=== PATIENT | male | born 1940 | race Caucasian/White ===

== ENCOUNTER → 2017-11-12 12:51 | Outpatient (CLI) | payer MEDICARE, BC, SELFPAY ==
[2017-11-12 14:17] LABS: Absolute Neutrophil Count 3.4 X10^3/uL (2.0-7.7); Basophil# 0.05 X10^3/uL; Eosinophil# 0.15 X10^3/uL; Eosinophils% 2.9 % (0-5); Hematocrit 46.3 % (40-54); Hemoglobin 15.4 g/dl (13.0-16.5); Lymphocyte % 19.3 % (19-41); Mean Corp Hgb Conc 33.3 g/gl (32-36); Mean Corpuscular Hgb 31.8 pg (27.0-32.0); Mean Corpuscular Volume 95.7 fL (80-94); Mean Platelet Vol. 10.4 fl (6.2-12.0); Monocyte# 0.62 X10^3/uL; Monocyte% 11.9 % (0-10); Neutrophil # 3.35 X10^3/uL (2.7-7.7); Neutrophil % 64.5 % (47-70); Platelet Count 226 K/mm3 (150-450); RBC Distribution Width SD 44.5 fl (35.1-43.9); Red Blood Count 4.84 M/mm3 (4.6-6.2); White Blood Count 5.2 K/mm3 (4.4-11.0)
[2017-11-12 14:18] LABS: POSITIVE COUNT NO; POSITIVE DIFFERENTIAL NO; POSITIVE MORPHOLOGY NO
[2017-11-12 14:27] LABS: AST(SGOT) 17 U/L (15-37); Alanine Aminotransfer ALT/SGPT 27 U/L (16-61); Albumin, Serum 3.9 g/dL (3.2-5.0); Alkaline Phosphatase 80 U/L (45-117); Anion Gap 7 (5-15); BUN 12 mg/dL (7-18); Chloride 105 mmol/L (98-107); Creatinine, Serum 1.09 mg/dL (0.70-1.30); EST Glomerular Filtration Rate 70 mL/min (>60); Est Glom Filt Rate - Afr Amer 85 mL/min (>60); Glucose 101 mg/dL (74-106); Potassium 4.6 mmol/L (3.5-5.1); Protein, Total 7.9 g/dL (6.4-8.2); Sodium Level 141 mmol/L (136-145)
== END ==
PROVIDERS: Family Provider Family Medicine; PCP Family Medicine; Visit Provider Family Medicine
DX: K57.92 Diverticulitis of intestine, part unspecified, without perforation or abscess without bleeding (principal)
CPT/HCPCS: 36415; 80053; 85025

== ENCOUNTER 2017-12-31 06:04 | Day surgery (SDC) | payer MEDICARE, BC, SELFPAY ==
[2017-12-31] VITALS (7 sets, daily range): BP systolic 119–142; BP diastolic 78–93; PULSE 70–95; RESP 16–18; TEMP 36.2–36.3; O2SAT 94–97; BMI 30.9
--- NOTE | 2017-12-31 07:05 | PCM.OPRPT ---
Problem List (1) Bleeding per rectum Status: Acute (2) Family history of colon cancer in father Status: Acute (3) External hemorrhoid Status: Acute Report of Operation Date of Procedure: 12/31/17 Pre-Operative Diagnosis: k62.5 rectal bleeding. z80.0 family history of colon cancer in father. k64.4 external hemorrhoid Post-Operative Diagnosis: Same Surgery/Procedure Performed:: Colonoscopy Type of Anesthesia:: MAC Anesthesiologist: Jm Bradford Description of Procedure: Patient was brought into the endoscopy suite. Placed in the left lateral decubitus position. Was given graded anesthesia. Colonoscope was inserted into the rectum. It was directed through the sigmoid colon, descending colon, transverse colon, ascending colon, to the cecum without difficulty. Operative findings: 1. Cecum: Normal appearance no mass lesions normal ileocecal valve. 2. Ascending colon: Normal appearance no mass lesions. 3. Transverse colon: Normal appearance no mass lesions. 4. Descending colon: Normal appearance no mass lesions. 5. Sigmoid colon: Normal appearance moderate amount of diverticular disease was identified no mass lesions. 6. Rectum: Normal appearance no mass lesions retroflexion showed some in internal hemorrhoids scope was withdrawn digital rectal exam was performed showing prostate with no nodules he did have external hemorrhoids as well. Patient will need to have another colonoscopy in 5 years. With regards to his external hemorrhoids more likely the best surgical option will probably be a formal hemorrhoidectomy given the fact that there is both an external and internal component. - Admit VTE Documentation VTE Present on Admission: No VTE Mechan Device Prophylaxis: None VTE Pharm Prophylaxis ordered?: No Reason prophylaxis not ordered:: Treatment Not Indicated
== END 2017-12-31 08:21 | disposition home or self-care (01) ==
LOC: EN 06:06 → AC 06:06
PROVIDERS: Family Provider Family Medicine; PCP Family Medicine; Visit Provider Surgery
PROC: 0DJD8ZZ Inspection of Lower Intestinal Tract, Via Natural or Artificial Opening Endoscopic (ICD-10-PCS; CPT 45378; principal; 2017-12-31 06:55)
DX: K62.5 Hemorrhage of anus and rectum (principal); K64.4 Residual hemorrhoidal skin tags; Z80.0 Family history of malignant neoplasm of digestive organs; Z86.010 Personal history of colon polyps; J45.909 Unspecified asthma, uncomplicated
CPT/HCPCS: 45378; J7120

== ENCOUNTER → 2018-01-21 07:04 | Outpatient (CLI) | payer MEDICARE, BC, SELFPAY ==
--- NOTE | 2018-01-21 07:09 | MRI_ITS ---
STUDY: MRI CERVICAL SPINE WITHOUT CONTRAST REASON FOR EXAM: Male, 77 years old. Right arm weakness. DDD. Prior surgery at C5-C6. TECHNIQUE: Standardized fat and water weighted pulse sequences were obtained in the sagittal and axial planes. COMPARISON: 11/12/2016. FINDINGS: Normal foramen magnum and brainstem-cervical cord junction. Normal craniovertebral junction. Normal lateral atlantoaxial articulations. Normal predental space. Normal odontoid process. Cervical kyphosis is unchanged. Normal vertebral bodies and posterior osseous elements. C2-3: Normal endplates. Normal disc height and morphology. Normal central canal and bilateral intervertebral neural foramina. Subchondral cystic changes in the left C2 articular facet. Moderately pronounced left degenerative facet arthropathy. Normal right facet joint. C3-4: Normal endplates. Normal disc height with minimal degenerative anterolisthesis of C3 on C4. Normal central canal. Mild stenosis of the left intervertebral neural foramen due to pronounced left degenerative facet hypertrophy. Normal right intervertebral neural foramen. Mild right degenerative facet arthropathy. C4-5: Anterior marginal spurs. Normal endplates. Normal disc height. Minimal spurs in the uncovertebral joints. Minimal degenerative anterolisthesis of C4 on C5. Normal central canal. Mild stenosis of the bilateral intervertebral neural foramina. Moderate right degenerative facet arthropathy. Mild left degenerative facet arthropathy. C5-6: Metallic plate with transfixing screws from previous anterior fusion of C5 and C6. Focal spinal cord atrophy with intrinsic signal abnormality due to myelomalacia. Normal central canal and bilateral intervertebral neural foramina. Normal facet joints. C6-7: Pronounced disc space height narrowing. No extruded disc fragment. Normal central canal and bilateral intervertebral neural foramina. Normal facet joints. C7-T1: (Sagittal only). Normal endplates. Normal disc height. Mild degenerative anterolisthesis of C7 on T1. Normal central canal and bilateral intervertebral neural foramina. T1-T2: (Sagittal only). Normal endplates. Normal disc height and morphology. Normal central canal and bilateral intervertebral neural foramina. Benign T2 vertebral body hemangioma. T2-T3: Normal endplates. Normal disc height and morphology. Normal central canal and bilateral intervertebral neural foramina. Benign T3 vertebral body hemangioma. T3-T4: Normal endplates. Normal disc height and morphology. Normal central canal and bilateral intervertebral neural foramina. Focal spinal cord atrophy at the C5-C6 this level with intramedullary high signal intensity is consistent with focal myelomalacia. The remainder of the cervical spinal cord is normal. Normal visualized soft tissue structures. MRI/Spine Cervical (Routine) IMPRESSION: 1. 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 This is unchanged. 2. Interval development of subchondral cystic changes of the C2 inferior articular facet due to progression of left degenerative facet arthropathy. 3. Minimal degenerative anterolisthesis of C3 on C4 with mild stenosis of the left intervertebral neural foramen due to pronounced left degenerative facet hypertrophy. 4. Minimal degenerative anterolisthesis of C4 on C5 with mild stenosis of the bilateral intervertebral neural foramina and moderate right degenerative facet arthropathy. 5. Complete fusion of the C5 and C6 vertebral bodies from previous ACDF. 6. Pronounced C6-C7 disc space height narrowing. 7. Mild degenerative anterolisthesis of C7 on T1. 8. Benign T2 and T3 vertebral body hemangiomas. Electronically Signed: Bryant Aguilar MD at 14:45 EDT , Service support ,
[2018-01-21 08:29] LABS: Cholesterol 174 mg/dL (200); High Density Lipoprotein 35 mg/dL; Triglycerides 104 mg/dL; Very Low Density Lipoprotein 21 mg/dL (5-40)
== END ==
PROVIDERS: Family Provider Family Medicine; PCP Family Medicine; Visit Provider Family Medicine
DX: M50.90 Cervical disc disorder, unspecified, unspecified cervical region (principal)
CPT/HCPCS: 36415; 72141; 80061

== ENCOUNTER → 2018-02-16 13:18 | Outpatient (CLI) | payer MEDICARE, BC, SELFPAY ==
--- NOTE | 2018-02-16 13:33 | MRI_ITS ---
STUDY: MRI RIGHT SHOULDER REASON FOR EXAM: Right shoulder pain, right arm weakness. TECHNIQUE: Standardized fat and water weighted pulse sequences were obtained in all 3 orthogonal planes. COMPARISON: Radiographs 10/29/2016. FINDINGS: There is a full-thickness tear of the distal supraspinatus tendon (T2 coronal images 11-14) measuring approximately 1.9 x 1.5 cm (length x width). Normal infraspinatus tendon. Normal subscapularis tendon. Normal teres minor tendon. There is atrophy with partial fat replacement of the supraspinatus and infraspinatus muscles (T2 sagittal images 18-22). Normal subscapularis muscle. There is atrophy with partial fat replacement of the teres minor muscle (T2 axial image 19). Normal glenohumeral articulation. There is a small cyst in the anterior aspect of the greater tuberosity. Normal biceps labral complex. Normal intracapsular long biceps tendon. Normal labrum. Normal capsulo- ligamentous complex. There is acromioclavicular arthrosis with undersurface osteophytes abutting the supraspinatus musculotendinous junction (T2 sagittal image 20, 21). There is a Type I morphology (flat undersurface), with a neutral orientation. There is a very small volume of subacromial-subdeltoid bursal fluid (T2 coronal images 12, 13). There is mild thickening of the coracoacromial ligament (T2 sagittal image 15). Normal deltoid muscle. Normal trapezius muscle. MRI/Upper Ext Joint Only(Routine) IMPRESSION: Full-thickness tear of the supraspinatus tendon. Atrophy of the supraspinatus, infraspinatus and teres minor muscles. Acromioclavicular arthrosis with undersurface osteophytes. Mild thickening of the coracoacromial ligament. Very small volume of subacromial-subdeltoid bursal fluid. Electronically Signed: Umesh South MD at 14:49 EDT Tel , Service support ,
== END ==
PROVIDERS: Family Provider Family Medicine; PCP Family Medicine; Visit Provider Family Medicine
DX: M25.511 Pain in right shoulder (principal)
CPT/HCPCS: 73221

== ENCOUNTER → 2019-02-23 07:58 | Outpatient (CLI) | payer MEDICARE, BC, SELFPAY ==
[2017-12-31 06:30] VITALS: BMI 30.9
[2019-02-23 10:36] LABS: Rubella IgG 452.1 IU/mL
[2019-02-25 09:09] LABS: Mumps Antibody,IgG < 9.0 AU/mL (Immune >10.9); Rubeola IgG Ab > 300.0 AU/mL (Immune >29.9)
== END ==
PROVIDERS: Family Provider Family Medicine; PCP Family Medicine; Referring Provider Family Medicine; Visit Provider Family Medicine
DX: Z11.59 Encounter for screening for other viral diseases (principal)
CPT/HCPCS: 36415; 86735; 86762; 86765

== ENCOUNTER → 2019-09-02 08:02 | Outpatient (CLI) | payer MEDICARE, BC, SELFPAY ==
[2017-12-31 06:30] VITALS: BMI 30.9
[2019-09-02 10:53] LABS: Anion Gap 6 (5-15); BUN 14 mg/dL (7-18); Calcium,Total 9.2 mg/dL (8.5-10.1); Chloride 107 mmol/L (98-107); Cholesterol 200 mg/dL (200); Creatinine, Serum 1.08 mg/dL (0.70-1.30); EST Glomerular Filtration Rate 71 mL/min (>60); Est Glom Filt Rate - Afr Amer 85 mL/min (>60); Glucose 93 mg/dL (74-106); High Density Lipoprotein 43 mg/dL; Potassium 4.4 mmol/L (3.5-5.1); Sodium Level 141 mmol/L (136-145); Triglycerides 110 mg/dL; Very Low Density Lipoprotein 22 mg/dL (5-40)
== END ==
PROVIDERS: PCP Family Medicine; Referring Provider Family Medicine; Visit Provider Family Medicine
DX: Z13.220 Encounter for screening for lipoid disorders (principal); R53.83 Other fatigue
CPT/HCPCS: 36415; 80048; 80061

== ENCOUNTER → 2020-08-21 10:18 | Outpatient (CLI) | payer MEDICARE, BC, SELFPAY ==
[2017-12-31 06:30] VITALS: BMI 30.9
[2020-08-21 12:59] LABS: BUN 15 mg/dL (7-18); Creatinine, Serum 1.01 mg/dL (0.70-1.30); EST Glomerular Filtration Rate 76 mL/min (>60); Glucose 98 mg/dL (74-106)
[2020-08-21 13:00] LABS: Anion Gap 4 (5-15); BUN/Creat Ratio 14.9 RATIO (10-20); Calcium,Total 8.9 mg/dL (8.5-10.1); Chloride 106 mmol/L (98-107); Cholesterol 179 mg/dL (200); Est Glom Filt Rate - Afr Amer 92 mL/min (>60); High Density Lipoprotein 42 mg/dL; Potassium 4.3 mmol/L (3.5-5.1); Sodium Level 140 mmol/L (136-145); Triglycerides 109 mg/dL; Very Low Density Lipoprotein 22 mg/dL (5-40)
== END ==
PROVIDERS: PCP Family Medicine; Referring Provider Family Medicine; Visit Provider Family Medicine
DX: Z13.1 Encounter for screening for diabetes mellitus (principal)
CPT/HCPCS: 36415; 80048; 80061

== ENCOUNTER → 2021-02-06 08:58 | Outpatient (CLI) | payer MEDICARE, BC, SELFPAY ==
--- NOTE | 2021-02-06 09:04 | ECHOD_ITS ---
Reason For Study: REYES Procedure This was a 2D Doppler, Color Flow transthoracic echocardiogram. The study was technically difficult. Exam performed in department. Left Ventricle Normal LV size. Mild concentric left ventricular hypertrophy. Left ventricular systolic function is normal. The estimated ejection fraction is 55 %. Septal motion consistent with IVCD. Diastolic function is indeterminate. No regional wall motion abnormalities noted. Right Ventricle Normal RV size. Normal systolic function. Atria Normal left atrium. Normal right atrium. No doppler evidence for ASD. Mitral Valve There is no mitral annular calcification. Normal mitral valve. Mild (1+) mitral valve insufficiency. Tricuspid Valve Normal tricuspid valve. Mild tricuspid valve insufficiency. Unable to estimate RV systolic pressure due to insufficient tricuspid regurgitant envelope. Aortic Valve Trisinus/trileaflet aortic valve. Normal aortic valve. Pulmonic Valve The pulmonic valve is not well visualized. Great Vessels Normal sized aortic root. Pericardium/Pleural No pericardial effusion. Epicardial fat. MMode/2D Measurements & Calculations LVIDd: 5.2 cm IVSd: 1.3 cm Ao root diam: 3.8 cm LVIDs: 2.9 cm LVPWd: 1.5 cm LA dimension: 3.9 cm FS: 43.3 % LAV(MOD-sp4): 41.6 ml LA A4 area: 15.8 cm2 RA A4 area: 16.4 cm2 Time Measurements MV dec time: 0.51 sec Doppler Measurements & Calculations MV E max kal: 38.6 cm/sec Lat Peak E' Kal: 4.1 cm/sec Med Peak E' Kal: 5.2 cm/sec MV A max kal: 59.5 cm/sec E/E' lat: 9.5 E/E' med: 7.4 MV E/A: 0.65 MV V2 max: 65.2 cm/sec MV P1/2t max kal: 36.9 cm/sec Ao V2 max: 95.1 cm/sec MV max P.7 mmHg MV P1/2t: 137.3 msec Ao max P.6 mmHg MV V2 mean: 31.4 cm/sec MV dec slope: 78.8 cm/sec2 MV mean P.46 mmHg MVA(P1/2t): 1.6 cm2 MV V2 VTI: 19.7 cm LV V1 max: 91.0 cm/sec PA V2 max: 137.0 cm/sec LV V1 max P.3 mmHg ECHO/Echo Complete Interpretation Summary The study was technically difficult. Left ventricular systolic function is normal. The estimated ejection fraction is 55 %. Septal motion consistent with IVCD. Mild concentric left ventricular hypertrophy. Mild (1+) mitral valve insufficiency. Mild tricuspid valve insufficiency. Epicardial fat. Unable to estimate RV systolic pressure due to insufficient tricuspid regurgita nt envelope. Diastolic function is indeterminate. Ordering Physician: DENTON ALCALA Referring Physician: Romeo Dunbar Performed By: Justyn Tripathi RCS
--- NOTE | 2021-02-06 09:05 | EKG12_ITS ---
Test Reason : SOB Blood Pressure : / mmHG Vent. Rate : 066 BPM Atrial Rate : 066 BPM P-R Int : 156 ms QRS Dur : 112 ms QT Int : 428 ms P-R-T Axes : 050 -47 022 degrees QTc Int : 448 ms Normal sinus rhythm Left anterior fascicular block Abnormal ECG Confirmed by DONA APODACA, SONIDO ([id number]), manager editorial ORIN LAURA ([id number]) on 02/07/2021 2:01:40 PM Referred By: DENTON ALCALA Confirmed By:SONIDO CARCAMO MD
== END ==
PROVIDERS: PCP Family Medicine
DX: R06.00 Dyspnea, unspecified (principal); M48.062 Spinal stenosis, lumbar region with neurogenic claudication
CPT/HCPCS: 93005; 93306

== ENCOUNTER → 2021-08-07 10:05 | Outpatient (CLI) | payer MEDICARE, BC, SELFPAY ==
[2021-08-07 12:49] LABS: Anion Gap 7 (5-15); BUN 17 mg/dL (7-18); BUN/Creat Ratio 17.8 RATIO (10-20); Calcium,Total 8.7 mg/dL (8.5-10.1); Chloride 105 mmol/L (98-107); Creatinine, Serum 0.96 mg/dL (0.70-1.30); EST Glomerular Filtration Rate 81 mL/min (>60); Est Glom Filt Rate - Afr Amer 98 mL/min (>60); Glucose 95 mg/dL (74-106); Sodium Level 141 mmol/L (136-145)
== END ==
PROVIDERS: PCP Family Medicine
DX: E87.5 Hyperkalemia (principal)
CPT/HCPCS: 36415; 80048

== ENCOUNTER → 2022-02-21 | Outpatient (CLI) | payer MEDICARE, BC, SELFPAY ==
[2022-02-21 15:35] LABS: AST(SGOT) 22 U/L (15-37); Alanine Aminotransfer ALT/SGPT 27 U/L (16-61); Albumin, Serum 3.5 g/dL (3.2-5.0); Alkaline Phosphatase 82 U/L (45-117); Anion Gap 7 (5-15); BUN 14 mg/dL (7-18); BUN/Creat Ratio 14.8 RATIO (10-20); Calcium,Total 8.3 mg/dL (8.5-10.1); Chloride 107 mmol/L (98-107); Cholesterol 159 mg/dL (200); Creatinine, Serum 0.95 mg/dL (0.70-1.30); EST Glomerular Filtration Rate 82 mL/min (>60); Est Glom Filt Rate - Afr Amer 99 mL/min (>60); Globulin 3.4 g/dL (2.2-4.2); Glucose 104 mg/dL (74-106); High Density Lipoprotein 37 mg/dL; Protein, Total 6.9 g/dL (6.4-8.2); Sodium Level 138 mmol/L (136-145); Triglycerides 95 mg/dL; Very Low Density Lipoprotein 19 mg/dL (5-40)
== END | disposition home or self-care (01) ==
LOC: MFPLAB 11:57
PROVIDERS: PCP Family Medicine; Referring Provider Family Medicine; Visit Provider Family Medicine
DX: Z13.1 Encounter for screening for diabetes mellitus (principal); Z13.220 Encounter for screening for lipoid disorders; K57.92 Diverticulitis of intestine, part unspecified, without perforation or abscess without bleeding; R19.7 Diarrhea, unspecified
CPT/HCPCS: 36415; 80053; 80061; 82274; 87177; 87209; 87506

== ENCOUNTER → 2023-03-10 | Outpatient (CLI) | payer MEDICARE, BC, SELFPAY ==
--- NOTE | 2023-03-10 10:58 | RAD_ITS ---
STUDY: X-RAY - LEFT HAND, ATTENTION FOURTH FINGER REASON FOR EXAM: Male, 82 years old. Concern for foreign body in finger. TECHNIQUE: 3 view(s) of the finger were obtained. COMPARISON: None. FINDINGS: Osteopenia. Osteoarthrosis of the MCP, PIP and IP joints. Diffuse soft tissue swelling. No acute abnormality. RAD/Finger(s) Min 2 Views IMPRESSION: Osteopenia with osteoarthritic changes. Soft tissue swelling. No radiopaque foreign body identified. Electronically Signed: Darryn Freitas MD at 13:55 EDT ,
== END | disposition home or self-care (01) ==
LOC: MTLAB 10:54 → MTRAD 10:55
PROVIDERS: PCP Family Medicine; Referring Provider Nurse Practitioner Family; Visit Provider Nurse Practitioner Family
DX: S60.552A Superficial foreign body of left hand, initial encounter (principal); X58.XXXA Exposure to other specified factors, initial encounter
CPT/HCPCS: 73140

== ENCOUNTER → 2024-01-15 | Outpatient (CLI) | payer MEDICARE, BC, SELFPAY ==
[2024-01-15 17:52] LABS: Absolute Lymphocyte Count 0.66 X10^3/uL (0.83-4.51); Absolute Neutrophil Count 5.7 X10^3/uL (2.0-7.7); Basophil# 0.04 X10^3/uL; Basophil% 0.6 % (0-1); Eosinophil# 0.04 X10^3/uL; Eosinophils% 0.6 % (0-5); Hematocrit 42.1 % (40-54); Hemoglobin 13.8 g/dL (13.0-16.5); Lymphocyte # 0.66 X10^3/ul (0.83-4.51); Lymphocyte % 9.2 % (19-41); Mean Corp Hgb Conc 32.8 g/dL (32-36); Mean Corpuscular Hgb 31.7 pg (27.0-32.0); Mean Corpuscular Volume 96.6 fL (80-94); Mean Platelet Vol. 9.6 fl (6.2-12.0); Monocyte# 0.65 X10^3/uL; Monocyte% 9.1 % (0-10); NRBC Flagged by Analyzer 0 % (0-5); Neutrophil # 5.72 X10^3/uL (2.7-7.7); Neutrophil % 80.1 % (47-70); Platelet Count 249 K/mm3 (150-450); RBC Distribution Width CV 13.4 % (11.6-14.6); RBC Distribution Width SD 48.2 fl (35.1-43.9); Red Blood Count 4.36 M/mm3 (4.6-6.2); White Blood Count 7.1 K/mm3 (4.4-11.0)
[2024-01-15 18:18] LABS: Vitamin D,25 Hydroxy 23.7 ng/mL
[2024-01-15 18:41] LABS: Hemoglobin A1c 5.8 % (3.8-5.6)
[2024-01-15 18:45] LABS: AST(SGOT) 29 U/L (15-37); Alanine Aminotransfer ALT/SGPT 49 U/L (16-61); Albumin, Serum 3.3 g/dL (3.2-5.0); Alkaline Phosphatase 80 U/L (45-117); Anion Gap 5 (5-15); BUN 17 mg/dL (7-18); BUN/Creat Ratio 20.5 RATIO (10-20); Calcium,Total 9.4 mg/dL (8.5-10.1); Chloride 101 mmol/L (98-107); Creatinine, Serum 0.83 mg/dL (0.70-1.30); EST Glomerular Filtration Rate 95 mL/min (>60); Est Glom Filt Rate - Afr Amer 114 mL/min (>60); Globulin 3.3 g/dL (2.2-4.2); Glucose 123 mg/dL (74-106); Potassium 4.5 mmol/L (3.5-5.1); Protein, Total 6.6 g/dL (6.4-8.2); Sodium Level 134 mmol/L (136-145)
== END | disposition home or self-care (01) ==
LOC: MFPLAB 16:35
PROVIDERS: PCP Family Medicine; Visit Provider Family Medicine
DX: R73.01 Impaired fasting glucose (principal); E55.9 Vitamin D deficiency, unspecified
CPT/HCPCS: 36415; 80053; 82306; 83036; 85025

== ENCOUNTER → 2024-09-27 | Outpatient (CLI) | payer MEDICARE, BC, SELFPAY ==
[2024-09-27 10:31] LABS: Absolute Lymphocyte Count 1.69 X10^3/uL (0.83-4.51); Absolute Neutrophil Count 3.6 X10^3/uL (2.0-7.7); Basophil# 0.05 X10^3/uL; Basophil% 0.8 % (0-1); Eosinophil# 0.14 X10^3/uL; Eosinophils% 2.2 % (0-5); Hematocrit 43.2 % (40-54); Hemoglobin 13.8 g/dL (13.0-16.5); Lymphocyte # 1.69 X10^3/ul (0.83-4.51); Lymphocyte % 27.1 % (19-41); Mean Corp Hgb Conc 31.9 g/dL (32-36); Mean Corpuscular Hgb 32.2 pg (27.0-32.0); Mean Corpuscular Volume 100.9 fL (80-94); Mean Platelet Vol. 9.7 fl (6.2-12.0); Monocyte# 0.76 X10^3/uL; Monocyte% 12.2 % (0-10); NRBC Flagged by Analyzer 0 % (0-5); Neutrophil # 3.58 X10^3/uL (2.7-7.7); Neutrophil % 57.4 % (47-70); Platelet Count 223 K/mm3 (150-450); RBC Distribution Width CV 12.8 % (11.6-14.6); Red Blood Count 4.28 M/mm3 (4.6-6.2); White Blood Count 6.2 K/mm3 (4.4-11.0)
[2024-09-27 10:47] LABS: Vitamin D,25 Hydroxy 46.7 ng/mL
[2024-09-28 06:47] LABS: ALB/GLOB Ratio 1.1 RATIO (0.9-2.4); AST(SGOT) 19 U/L (15-37); Alanine Aminotransfer ALT/SGPT 31 U/L (16-61); Albumin, Serum 3.5 g/dL (3.2-5.0); Alkaline Phosphatase 62 U/L (45-117); Anion Gap 5 (5-15); BUN 16 mg/dL (7-18); BUN/Creat Ratio 15.7 RATIO (10-20); Calcium,Total 9.3 mg/dL (8.5-10.1); Chloride 106 mmol/L (98-107); Cholesterol 198 mg/dL (200); Creatinine, Serum 1.02 mg/dL (0.70-1.30); EST Glomerular Filtration Rate 74 mL/min (>60); Est Glom Filt Rate - Afr Amer 90 mL/min (>60); Globulin 3.1 g/dL (2.2-4.2); Glucose 95 mg/dL (74-106); High Density Lipoprotein 55 mg/dL; Potassium 4.9 mmol/L (3.5-5.1); Protein, Total 6.6 g/dL (6.4-8.2); Sodium Level 139 mmol/L (136-145); Triglycerides 114 mg/dL; Very Low Density Lipoprotein 23 mg/dL (5-40)
== END | disposition home or self-care (01) ==
LOC: MTLAB 07:14
PROVIDERS: PCP Family Medicine; Referring Provider Family Medicine; Visit Provider Family Medicine
DX: Z00.00 Encounter for general adult medical examination without abnormal findings (principal); E55.9 Vitamin D deficiency, unspecified
CPT/HCPCS: 36415; 80053; 80061; 82306; 85025

== ENCOUNTER 2025-03-23 07:10 | Inpatient (IN) | payer MEDICARE, BC, SELFPAY ==
[2025-03-23] VITALS (13 sets, daily range): BP systolic 118–150; BP diastolic 75–91; PULSE 67–87; RESP 11–22; TEMP 36.1–37.1; O2SAT 93–99; BMI 29.9; BMI 29.4
--- NOTE | 2025-03-23 07:40 | CT_ITS ---
PROCEDURE: CTA CHEST W/WO CONTRAST 03/23/2025 REASON FOR EXAM: CONCERN FOR PE RIGHT SIDED TECHNIQUE: CTA CHEST W/WO CONTRAST Multiplanar Sagittal and Coronal images were obtained. 3D post processing was performed CONTRAST: Isovue 370 VOLUME: 95 mL One or more dose reduction techniques were used (e.g., Automated exposure control, adjustment of the mA and/or kV according to patient size, use of iterative reconstruction technique). RADIATION DOSE SUMMARY: CTDlvol: 10.5 mGy DLP: 398.94 mGycm COMPARISON: None FINDINGS: Hardware: None Lymph nodes: None Heart: Mild coronary artery calcification. Thoracic Aorta: No thoracic aortic aneurysm or dissection. Atherosclerotic calcific plaques. Pulmonary Vessels: Multiple intraluminal filling defects are seen in branches of the right upper and lower pulmonary arteries. There is also evidence of scattered intraluminal filling defects in branches of the left upper lobe pulmonary artery in keeping with the bilateral pulmonary embolism. Lungs and Airways: Mild degree of ground-glass appearance in the lateral aspect of the right upper lobe suggestive of possible atelectasis and/or early infiltrate. Mild scarring at the lung bases. Pleura: No pleural effusion. Upper Abdomen: Small hiatal hernia. Bones: Bone windows are unremarkable. CT/CTA Chest W/WO Contrast IMPRESSION: Bilateral pulmonary emboli more prominent in the right hemithorax. Reading Location: [id number]
--- NOTE | 2025-03-23 07:42 | ED.VIS.DYS ---
HPI History of Present Illness Chief Complaint: Shortness of Breath Narrative Narrative: Patient is an 84-year-old male presenting to the emergency department for shortness of breath and right-sided shoulder blade pain. Patient states that this morning around 5 AM he woke up with right-sided shoulder blade pain that worsens with deep inspiration. States it feels like a stabbing pain. It does not radiate anywhere else. He states he had some diaphoresis along with it. Denies this ever happening before. Denies any history of cardiac disease that he knows of. States that he did have a 4-hour car drive but nothing longer than this. Denies any recent hospitalizations or surgeries. Denies any history of DVT or PE. Denies fever, chills, cough, nausea, vomiting, abdominal pain. Endorses some ankle swelling bilaterally but nothing significant from baseline. Was reportedly 88% on room air and was placed on 2 L nasal cannula in triage. [facility] History Personal history of colonic polyps Home Medications ?Medication ?Instructions ?Recorded ?Last Taken ?Type Prednisolone Eye Drops (1 Ml) 1 drp BID 12/24/17 Unknown History [Pred Forte Eye Drops (1 Ml)] naproxen sodium 220 mg tablet 220 mg PO PRN PRN Pain 12/24/17 Unknown History (Aleve) Allergy/AdvReac Type Severity Reaction Status Date / Time No Known Allergies Allergy Verified 12/24/17 14:32 Family History Father Colon cancer Surgical History Cervical vertebral fusion S/P appendectomy H/O inguinal hernia repair H/O colonoscopy Cataracts, bilateral Social History Smoking Status: Never smoker alcohol intake: never ROS ROS ED ROS Narrative see HPI EXAM Physical Exam Narrative Exam Narrative: Vital signs: Reviewed General: Alert and orientedx3. No acute distress HEENT: Head is normocephalic and atraumatic, sinuses nontender, pupils equal round and reactive. Nares are patent. Oropharynx and throat exams normal. Neck: Supple without lymphadenopathy nontender Cardiovascular: Regular rate and rhythm, no murmurs. No rubs or gallops. Normal S1 and S2 Respiratory: Clear to auscultation bilaterally. No wheezes, rales, rhonchi. on 2 L NC Abdominal: Soft and nontender. Normal bowel sounds. No guarding or rebound. Nonsurgical abdomen Extremities: Trace edema to bilateral ankles. No calf swelling or pain. No tenderness. No bruising. Normal range of motion. Normal sensation. Skin: No rash or redness. Neurological: Cranial nerves II through XII are grossly intact. Normal strength and sensation. Normal cerebellar function The rest of the physical exam is unremarkable Const Vital Signs: 03/23/25 07:11 03/23/25 07:13 03/23/25 07:40 Temperature 96.9 F L Temperature Source Temporal Pulse Rate 80 Respiratory Rate 22 H Respiratory Effort Normal Non-Labored Respiratory Depth Normal Respiratory Pattern Normal Blood Pressure 118/85 H Blood Pressure Mean 96 Pulse Ox 93 99 Oxygen Delivery Method Nasal Cannula Room Air Nasal Cannula Oxygen Flow Rate (L/min) 2 03/23/25 08:11 03/23/25 09:00 Temperature Temperature Source Pulse Rate 69 67 Respiratory Rate 17 18 Respiratory Effort Respiratory Depth Respiratory Pattern Blood Pressure 139/82 H 136/75 H Blood Pressure Mean 101 95 Pulse Ox 96 94 Oxygen Delivery Method Room Air Nasal Cannula Oxygen Flow Rate (L/min) MDM MDM MDM Narrative Medical decision making narrative: Patient is a 84-year-old male presenting to the emergency department for shortness of breath and right-sided chest pain. Patient was seen and examined. Vitals are stable. Patient resting bed comfortably in no acute distress. Differential includes but is not limited to: PE, pneumonia, pneumothorax, ACS, MSK, less likely cholecystitis or cholelithiasis EKG shows normal sinus rhythm with left axis deviation. No ischemic changes. No dysrhythmia. CBC with no leukocytosis and normal hemoglobin. CMP with glucose of 135, otherwise no significant abnormalities. Troponin within normal limits. BNP within normal limits. CTA of the chest shows bilateral pulmonary emboli more prominent in the right hemothorax. Patient was reevaluated. Still requiring 2 L nasal cannula saturating 94 to over 95% on room air. He has had no recent GI bleeding. High risk PESI score. Heparin drip started. Will be admitted to hospitalist for further management. Clinical impression: bilateral pulmonary emboli pleuritic chest pain hypoxia Lab Data Labs: Laboratory Results - last 24 hr 03/23/25 07:24 WBC 8.0 RBC 4.32 L Hgb 13.9 Hct 42.3 MCV 97.9 H MCH 32.2 H MCHC 32.9 RDW Std Deviation 47.0 H RDW Coeff of Viviane 13.0 Plt Count 219 MPV 9.6 Immature Gran % (Auto) 0.500 Neut % (Auto) 67.5 Lymph % (Auto) 16.1 L [place] % (Auto) 13.7 H Eos % (Auto) 1.6 Baso % (Auto) 0.6 Absolute Neuts (auto) 5.4 Absolute Lymphs (auto) 1.28 Nucleated RBC % 0 Sodium 136 Potassium 4.1 Chloride 100 Carbon Dioxide 24.2 Anion Gap 12 BUN 14 Creatinine 1.03 Est GFR (MDRD) Non-Af 73 BUN/Creatinine Ratio 13.1 Glucose 135 H Calcium 9.3 Total Bilirubin 0.58 AST 20 ALT 22 Alkaline Phosphatase 68 Troponin T High Sens 21 NT pro BNP II 68 Total Protein 6.8 Albumin 3.9 Globulin 2.9 Albumin/Globulin Ratio 1.3 Radiography Diagnostic Testing: Clinical Impression(s) from Imaging Studies Chest CTA 03/23/25 07:40 IMPRESSION: Bilateral pulmonary emboli more prominent in the right hemithorax. Reading Location: [facility] Discharge Plan Triage Chief Complaint: Shortness of Breath ED Provider: Chantale Zepeda Dx/Rx/DC Orders Prescriptions: No Action naproxen sodium [Aleve] 220 MG tablet 220 mg PO PRN PRN (Reason: Pain) Prednisolone Eye Drops (1 Ml) [Pred Forte Eye Drops (1 Ml)] 1 DROP Opth.Btl 1 drp Right Eye BID Primary Care Provider: Romeo Dunbar Referrals: Romeo Dunbar MD [Primary Care Provider] - Print Language: Spanish
--- NOTE | 2025-03-23 07:45 | EDS_ITS ---
HPI History of Present Illness Chief Complaint: Shortness of Breath PFSH PFSH Medical History Personal history of colonic polyps Home Medications ?Medication ?Instructions ?Recorded ?Last Taken ?Type Prednisolone Eye Drops (1 Ml) 1 drp BID 12/24/17 Unkno wn History [Pred Forte Eye Drops (1 Ml)] naproxen sodium 220 mg tablet 220 mg PO PRN PRN Pain 0 12/24/17 Unknown History (Aleve) Allergy/AdvReac Type Severity Reaction Status Date / Time No Known Allergies Allergy Verified 12/24/17 14:32 Family History Father Colon cancer Surgical History Cervical vertebral fusion S/P appendectomy H/O inguinal hernia repair H/O colonoscopy Cataracts, bilateral Social History Smoking Status: Never smoker alcohol intake: never EXAM Physical Exam Const Vital Signs: 03/23/25 07:11 03/23/25 07:13 Temperature 96.9 F L Temperature Source Temporal Pulse Rate 80 Respiratory Rate 22 H Respiratory Effort Normal Non-Labored Respiratory Depth Normal Respiratory Pattern Normal Blood Pressure 118/85 H Blood Pressure Mean 96 Pulse Ox 93 Oxygen Delivery Method Nasal Cannula Room Air Discharge Plan Triage Chief Complaint: Shortness of Breath ED Provider: Chantale Zepeda Dx/Rx/DC Orders Prescriptions: No Action naproxen sodium [Aleve] 220 MG tablet 220 mg PO PRN PRN (Reason: Pain) Prednisolone Eye Drops (1 Ml) [Pred Forte Eye Drops (1 Ml)] 1 DROP Opth.Btl 1 drp Right Eye BID Primary Care Provider: Romeo Dunbar Referrals: Romeo Dunbar MD [Primary Care Provider] - Print Language: [place]
--- NOTE | 2025-03-23 07:45 | EKG12_ITS ---
Test Reason : CHEST PAIN Blood Pressure : */* mmHG Vent. Rate : 71 BPM Atrial Rate : 71 BPM P-R Int : 160 ms QRS Dur : 112 ms QT Int : 396 ms P-R-T Axes : 30 -46 24 degrees QTcB Int : 430 ms Normal sinus rhythm Left axis deviation Moderate voltage criteria for LVH, may be normal variant ( R in aVL , [place] product ) Abnormal ECG No previous ECGs available Confirmed by DEMARCO AHMADI ([id number]), editor producer KONRAD HENNESSY ([id number]) on 03/29/2025 1:14:36 PM Referred By: Confirmed By: DEMARCO AHMADI
[2025-03-23 08:06] LABS: Hematocrit 42.3 % (40-54); Hemoglobin 13.9 g/dL (13.0-16.5); Immature Granulocytes Count 0.040 X10^3/uL (0.0-0.0); Mean Corp Hgb Conc 32.9 g/dL (32-36); Mean Corpuscular Volume 97.9 fL (80-94); Mean Platelet Vol. 9.6 fl (6.2-12.0); NRBC Flagged by Analyzer 0 % (0-5); Platelet Count 219 K/mm3 (150-450); RBC Distribution Width CV 13.0 % (11.6-14.6); RBC Distribution Width SD 47.0 fl (35.1-43.9); Red Blood Count 4.32 M/mm3 (4.6-6.2); White Blood Count 8.0 K/mm3 (4.4-11.0)
[2025-03-23 08:33] LABS: AST(SGOT) 20 U/L (<=37); Alanine Aminotransfer ALT/SGPT 22 U/L (<=46); Albumin, Serum 3.9 g/dL (3.4-4.8); Alkaline Phosphatase 68 U/L (40-129); Anion Gap 12 (5-15); BUN 14 mg/dL (4-19); BUN/Creat Ratio 13.1 RATIO (10-20); Calcium,Total 9.3 mg/dL (7.6-11.0); Carbon Dioxide 24.2 mmol/L (21.0-32.0); Chloride 100 mmol/L (98-108); Globulin 2.9 g/dL (2.2-4.2); Glucose 135 mg/dL (70-99); Potassium 4.1 mmol/L (3.3-5.1); Pro- Brain NATRIURETIC PEPTIDE 68 pg/mL (<=1800); Troponin T High Sensitivity 21 ng/L (<=22)
[2025-03-23] MEDS: APIXABAN 5 MG TABLET 10 MG PO ×2 (09:47→21:10)
[2025-03-23 10:16] LABS: Troponin T High Sens 2 HR 22 ng/L (<=22)
[2025-03-23 12:19] LABS: Troponin T High Sens 4 HR 18 ng/L (<=22)
[2025-03-23] MEDS: Metoprolol(XL)Succ 25 MG Tablet 12.5 MG PO (15:09)
--- NOTE | 2025-03-23 18:49 | HP.PCM.HOS_ITS ---
HPI - General General Date of Admission: 03/23/25 Date of Service: 03/23/25 Chief Complaint: Shortness of breath HPI Narrative REBECCA CULVER, is a 84 M who presents to the emergency room at [facility] with complaints of shortness of breath that have been going on since yesterday. Patient's pulse ox in triage on room air was noted to be 88%. Patient complained of right sided shoulder blade pain. This pain is worse with deep inspiration and feels like a stabbing sensation. Workup in the emergency room included an EKG which showed no ischemic changes, CBC showed no leukocytosis and hemoglobin was normal. CMP was abnormal for glucose of 135 otherwise there were no significant abnormalities, troponin was within normal limits, beta natruretic peptide was within normal limits. CTA of the chest was performed which showed bilateral pulmonary emboli more prominent in the right hemithorax. Hospitalist service was called for admission, I advise giving the patient Eliquis, I do not feel there is a need to get an echocardiogram on the patient, he will have to be admitted due to his hypoxia. [facility] Medical History (Updated 03/23/25 @ 18:[address] Redd Han, DO) Diverticulosis Myasthenia gravis Personal history of colonic polyps Home Medications ?Medication ?Instructions ?Recorded ?Last Taken ?Type ibuprofen 200 mg tablet (Advil) 200 mg PO Q8H PRN pain 03/23/25 Unknown History metoprolol succinate 25 mg 12.5 mg PO DAILY thinnig of aortic 03/23/25 03/22/25 History tablet,extended release 24 hr arch prednisone 5 mg tablet 5 mg PO DAILY myest. gravis 03/23/25 03/22/25 History Allergy/AdvReac Type Severity Reaction Status Date / Time No Known Allergies Allergy Verified 12/24/17 14:32 Family History Father Colon cancer Surgical History Cervical vertebral fusion S/P appendectomy H/O inguinal hernia repair H/O colonoscopy Cataracts, bilateral Social History Smoking Status: Never smoker alcohol intake: never ROS Constitutional Constitutional: Denies anorexia, change in weight, fever(s), night sweats or weakness Eyes Eyes: Denies blurry vision, change in vision, discharge from eye(s) or eye pain Cardiovascular Cardiovascular: Reports chest pain; Denies claudication, edema or palpitations Respiratory/Chest Respiratory/Chest: Reports shortness of breath at rest and shortness of breath with exertion; Denies cough or hemoptysis Gastrointestinal Gastrointestinal: Denies abdominal pain, constipation, diarrhea, hematemesis, hematochezia, melena, nausea or vomiting Genitourinary Genitourinary: Denies dysuria, hematuria, urinary frequency, urinary hesitancy, urinary incontinence or urinary urgency Musculoskeletal Musculoskeletal: Reports back pain; Denies joint pain, joint stiffness, joint swelling, myalgias or neck pain Neurologic Neurologic: Denies abnormal gait, abnormal speech, dizziness, focal weakness, headache(s), loss of vision, numbness, other visual disturbances, paresthesias, syncope or tingling Psychiatric Psychiatric: Denies anxiety, cognitive impairment, depression, irritability, mood swings or suicidal ideation Endocrine Endocrinology: Denies change in body appearance, cold intolerance, excessive sweating, heat intolerance, polydipsia or polyuria Hematologic/Lymphatic Hematologic/Lymphatic: Denies none, anemia, easy bleeding, easy bruising or lymphadenopathy Allergic/Immunologic Allergic/Immunologic: Denies rhinitis, urticaria, eczemia or asthma Vital Signs Vital Signs Vital Signs: 03/23/25 07:11 03/23/25 07:13 03/23/25 07:40 Temperature 96.9 F L Temperature Source Temporal Pulse Rate 80 Respiratory Rate 22 H Respiratory Effort Normal Non-Labored Respiratory Depth Normal Respiratory Pattern Normal Blood Pressure 118/85 H Blood Pressure Mean 96 Blood Pressure Source Blood Pressure Position Blood Pressure Location Pulse Ox 93 99 Oxygen Delivery Method Nasal Cannula Room Air Nasal Cannula Oxygen Flow Rate (L/min) 2 03/23/25 08:11 03/23/25 09:00 03/23/25 09:42 Temperature 98.2 F Temperature Source Pulse Rate 69 67 69 Respiratory Rate 17 18 11 L Respiratory Effort Respiratory Depth Respiratory Pattern Blood Pressure 139/82 H 136/75 H 131/81 H Blood Pressure Mean 101 95 97 Blood Pressure Source Blood Pressure Position Blood Pressure Location Pulse Ox 96 94 94 Oxygen Delivery Method Room Air Nasal Cannula Oxygen Flow Rate (L/min) 03/23/25 11:07 03/23/25 13:10 03/23/25 14:00 Temperature 98.7 F Temperature Source Oral Pulse Rate 77 Respiratory Rate 16 Respiratory Effort Normal Non-Labored Respiratory Depth Normal Respiratory Pattern Normal Blood Pressure 143/91 H Blood Pressure Mean 108 Blood Pressure Source Monitor Blood Pressure Position Semi-Fowlers Blood Pressure Location Right Arm Pulse Ox 94 94 Oxygen Delivery Method Nasal Cannula Nasal Cannula Nasal Cannula Oxygen Flow Rate (L/min) 2 2 2 03/23/25 15:06 03/23/25 15:09 Temperature 97.9 F Temperature Source Oral Pulse Rate 84 84 Respiratory Rate 16 Respiratory Effort Respiratory Depth Respiratory Pattern Blood Pressure 150/79 H Blood Pressure Mean 102 Blood Pressure Source Monitor Blood Pressure Position Semi-Fowlers Blood Pressure Location Right Arm Pulse Ox 95 Oxygen Delivery Method Nasal Cannula Oxygen Flow Rate (L/min) 2 Weight Weight: 98.3 kg Body Mass Index (BMI) 29.4 Physical Exam Const alert, oriented x3, no apparent distress and healthy appearing General Appearance: cooperative, well kempt and well developed Orientation / Consciousness: awake, oriented to person, oriented to place and oriented to time HEENT normocephalic, head/scalp atraumatic, hearing grossly normal bilaterally and moist oral mucous membranes Eyes PERRL, EOMs intact bilaterally and conjunctivae normal Neck supple, no JVD, thyroid normal and no carotid bruits General: trachea midline Resp normal respiratory effort, no retractions, no use of accessory muscles and clear to auscultation bilaterally Auscultation: Negative for rales, rhonchi or wheezes Cardio regular rate, regular rhythm, S1 normal heart sound, S2 normal heart sound, no murmurs, no rub and no gallops GI normal to inspection, nondistended, normoactive bowel sounds, soft to palpation, non-tender and non-distended Extremity no clubbing, cyanosis or edema Skin no rashes or lesions noted General Skin Exam: no breakdown Neuro oriented x3, CN's II-XII intact bilaterally, moves all extremities, no focal motor deficits and no sensory deficits noted Sensorium / Orientation: awake and alert Speech: speech normal Psych affect normal Results Lab / Micro Data 03/23/25 07:24 03/23/25 07:24 Labs: Laboratory Results - last 24 hr 03/23/25 07:24: WBC 8.0, RBC 4.32 L, Hgb 13.9, Hct 42.3, MCV 97.9 H, MCH 32.2 H, MCHC 32.9, RDW Std Deviation 47.0 H, RDW Coeff of Viviane 13.0, Plt Count 219, MPV 9.6, Immature Gran % (Auto) 0.500, Neut % (Auto) 67.5, Lymph % (Auto) 16.1 L, M kaveh % (Auto) 13.7 H, Eos % (Auto) 1.6, Baso % (Auto) 0.6, Absolute Neuts (auto) 5.4, Absolute Lymphs (auto) 1.28, Nucleated RBC % 0, Sodium 136, Potassium 4.1, Chloride 100, Carbon Dioxide 24.2, Anion Gap 12, BUN 14, Creatinine 1.03, Est GFR (MDRD) Non-Af 73, BUN/Creatinine Ratio 13.1, Glucose 135 H, Calcium 9.3, Total Bilirubin 0.58, AST 20, ALT 22, Alkaline Phosphatase 68, Troponin T High Sens 21, NT pro BNP II 68, Total Protein 6.8, Albumin 3.9, Globulin 2.9, Albumin/Globulin Ratio 1.3 03/23/25 09:25: Troponin T Hi Sens 2 Hr 22 03/23/25 11:25: Troponin T Hi Sens 4Hr 18 Imaging Radiology Impression Chest CTA 03/23/25 07:40 IMPRESSION: Bilateral pulmonary emboli more prominent in the right hemithorax. Reading Location: [id number] Assessment & Plan Assessment/Plan (1) Pulmonary embolism: PLAN: Plan 1. 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 Total clinical time spent by myself addressing the patient's medical issues, reviewing all of his data, and collaborating with the patient's care team: 55 minutes Charges/Coding Visit Charges Inpatient E&M: 35760 Init Hosp L2
[2025-03-24 03:38] VITALS: BP 134/80; PULSE 63; RESP 16; TEMP 36.8; O2SAT 97
[2025-03-24 08:16] VITALS: PULSE 69
[2025-03-24 09:11] VITALS: BP 120/82; PULSE 63; RESP 16; TEMP 37.1; O2SAT 93
--- NOTE | 2025-03-24 09:11 | CASEMGMT ---
Dx: Pulmonary Embolism LACE: 1 6-Clicks: 24 Medical record reviewed and patient evaluated for identification of discharge planning needs. Based on this review, at this time criteria are not present to indicate a need for discharge planning. Will remain available to assist with discharge planning needs as identified or requested.
[2025-03-24 09:28] VITALS: PULSE 63
[2025-03-24] MEDS: Metoprolol(XL)Succ 25 MG Tablet 12.5 MG PO (09:28)
[2025-03-24] MEDS: APIXABAN 5 MG TABLET 10 MG PO (09:29)
[2025-03-24 09:35] VITALS: O2SAT 93; O2SAT 94
--- NOTE | 2025-03-24 14:41 | DCINST_ITS ---
Discharge Instructions DC O2, CPAP, BIPAP needs Home O2 Discharge instructions: No Dressing / Incision Discharge Activity: Return to Normal Activity Weight Bearing Status: Full weight bearing Follow Up Care Test Results: Test results from this visit will be discussed in further detail at your follow- up appointment, if applicable. Discharge Plan Admission Admit Date/Time: 03/23/25 09:28 Primary Reason for Your Visit: pulmonary embolism, hypoxia Attending Provider: Redd Han Primary Care Provider: Romeo Dunbar Instructions Additional Instructions / Restrictions: Take Tylenol or narcotics for pain Discharge Orders/Prescriptions Prescriptions: New Eliquis 5 mg tablet 5 mg PO BID Qty: 68 0RF Rx Instructions: two twice a day for a total of 11 doses, then reduce to one twice a day there after Continued metoprolol succinate 25 mg tablet extended release 24 hr 12.5 mg PO DAILY prednisone 5 mg tablet 5 mg PO DAILY Discontinued ibuprofen [Advil] 200 mg tablet 200 mg PO Q8H PRN (Reason: pain) Referrals / Follow Up: Romeo Dunbar MD [Primary Care Provider] - See Referral Note (in two weeks) Disposition Disposition (needs filled in before D/C Order can be placed): Home, Self Care
--- NOTE | 2025-03-24 14:46 | PCM.DC.SUM ---
Providers Date of Admission: 03/23/25 Date of Discharge: 03/24/25 Primary Care Physician: Dr. Romeo Dunbar MD Reason For Visit: PULMONARY EMBOLISM Diagnosis Discharge Diagnosis (1) Pulmonary embolism: Status: Acute Code(s): I26.99 - Other pulmonary embolism without acute cor pulmonale Plan 1. 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 Total clinical time spent by myself addressing the patient's medical issues, reviewing all of his data, and collaborating with the patient's care team: 55 minutes Medications at Discharge Home Medications metoprolol succinate 25 mg tablet,extended release 24 hr 12.5 mg PO DAILY thinnig of aortic arch 03/23/25 prednisone 5 mg tablet 5 mg PO DAILY myest. gravis 03/23/25 apixaban 5 mg tablet (Eliquis) 5 mg PO BID #68 tabs 03/24/25 Hospital Course Operations None Procedures None Summary of Care Provided Minutes Spent on Discharge: 31 Hospital Course: Patient was seen and examined in the emergency room at [facility], he came in with complaints of shortness of breath that had been going on approximately 24 hours. Patient's pulse ox in triage on room air was 86%. Patient also complained of right sided shoulder blade pain which was worse on deep inspiration. Workup in the emergency room included an EKG which showed no ischemic changes, CBC was unremarkable, and beta nitric peptide was within normal limits. CT of the chest was performed which showed bilateral pulmonary emboli more prominent in the right hemithorax. Due to the patient's hypoxia, patient was admitted to PCU and monitored. He was started on Eliquis, patient had no untoward events during his hospitalization. On 03/24/2025, patient was seen and examined: On examination he appeared in good health and spirits. Vital signs as documented. Skin warm and dry and without overt rashes. Neck without JVD, neck was supple, trachea midline, thyroid was normal. Lungs clear bilaterally, normal air movement was noted. Heart exam notable for regular rhythm, normal sounds and absence of murmurs, rubs or gallops. Abdomen unremarkable and without evidence of organomegaly, masses, or abdominal aortic enlargement. Bowel sounds are present, abdomen is not distended. Extremities nonedematous, no cyanosis was noted, no clubbing was noted. Neuro: Cranial nerves II through XII are grossly intact, no focal motor deficits were noted, sensation to light touch and pinprick intact, motor exam 5/5 throughout. Psych: Patient is alert and oriented x3, he does not appear anxious or depressed, he does not appear agitated. Patient was found to have improved quicker than expected and appears to be stable for discharge to home on 03/24/2025. Weight / BMI Weight Weight: 98.3 kg Body Mass Index (BMI) 29.4 ABG / Lab / Microbiology Data 03/23/25 07:24 03/23/25 07:24 D/C Instructions Weight Bearing Status: Full weight bearing DC O2, CPAP, BIPAP Needs Home O2 Discharge instructions: No Meaningful Use Info Meaningful Use Meaningful Use Diagnoses (Choose all that apply): VTE VTE Anticoag overlap given w/in hospital stay or rx'd at dc?: No Pt receive overlap for 5 days?: No Reason overlap not ordered, prescribed, or given for 5 days: Treatment Not Indicated Discharge Plan Admission Admit Date/Time: 03/23/25 09:28 Primary Reason for Your Visit: pulmonary embolism, hypoxia Attending Provider: Redd Han Primary Care Provider: Romeo Dunbar Instructions Additional Instructions / Restrictions: Take Tylenol or narcotics for pain Discharge Orders/Prescriptions Prescriptions: New Eliquis 5 mg tablet 5 mg PO BID Qty: 68 0RF Rx Instructions: two twice a day for a total of 11 doses, then reduce to one twice a day there after Continued metoprolol succinate 25 mg tablet extended release 24 hr 12.5 mg PO DAILY prednisone 5 mg tablet 5 mg PO DAILY Discontinued ibuprofen [Advil] 200 mg tablet 200 mg PO Q8H PRN (Reason: pain) Referrals / Follow Up: Romeo Dunbar MD [Primary Care Provider] - See Referral Note (in two weeks) Disposition Disposition (needs filled in before D/C Order can be placed): Home, Self Care Charges/Coding Visit Charges Inpatient E&M: 41458 Disch Hosp >30min
[2025-03-24 15:08] VITALS: BP 152/77; PULSE 79; RESP 16; TEMP 36.8; O2SAT 94
--- NOTE | 2025-03-24 15:12 | CASEMGMT ---
Patient has order for discharge. Per hospitalist, Lawanda called into [facility] and copay is $15. RN CM in to discuss needs at discharge and updated regarding Eliquis copay. Patient denies needs or help at discharge. Patient had no further questions
== END 2025-03-24 15:27 | disposition home or self-care (01) | DRG 176 ==
LOC: ED 08:35 → PCU 09:40
PROVIDERS: Admitting Provider Internal Medicine; Emergency Provider Student in an Organized Health Care Education/Training Program; PCP Family Medicine; Visit Provider Internal Medicine
DX: I26.99 Other pulmonary embolism without acute cor pulmonale (principal); G70.00 Myasthenia gravis without (acute) exacerbation; R09.02 Hypoxemia; Z90.49 Acquired absence of other specified parts of digestive tract; Z79.52 Long term (current) use of systemic steroids
CPT/HCPCS: 71275; 80053; 83880; 84484; 85025; 93005; 99285; Q9967